=== PATIENT | male | born 1955 | race Caucasian/White ===

== ENCOUNTER 2018-03-19 08:24 | Emergency (ER) | payer MEDICAID, SELFPAY ==
[2018-03-19 08:25] VITALS: BP 138/97; PULSE 79; RESP 17; TEMP 37; O2SAT 97; BMI 21.2
--- NOTE | 2018-03-19 08:42 | RAD_ITS ---
STUDY: X-RAY - PELVIS AND RIGHT HIP REASON FOR EXAM: Male, 63 years old. Pain due to trauma. Limited range of motion. TECHNIQUE: Radiological exam, hip, unilateral, with pelvis when performed; 2 or 3 views. COMPARISON: None. FINDINGS: There is a non-specific bowel gas pattern. Normal visualized soft tissue structures. Normal bilateral iliac wings, sacroiliac joints and visualized sacrum. Normal bilateral superior and inferior pubic rami. Normal pubic symphysis. Normal bilateral ischial tuberosities. Normal visualized femoral head. Normal acetabulum. Normal hip joint. The patient is status post intramedullary alondra fixation of the left femur. RAD/Hip 2-3 Views with Pelvis IMPRESSION: No acute abnormality is seen of the right hip. Electronically Signed: William Ruby MD at 9:26 EDT Tel [phone], Service support ,
[2018-03-19] MEDS: HYDROcodone Bitartrate/Apap 5/325 Tablet PO (08:46)
--- NOTE | 2018-03-19 08:50 | ED.VISSUMM ---
- ER Visit Summary Date of Service: 03/19/18 Chief Complaint: Right hip and groin pain History of Present Illness: The patient is a 63 M with no primary care physician. He reports that 3 days ago he was [place] by the [place] and slipped in mud. Twisted awkwardly and did not fall. He reports he has pain in his right groin and hip that is 10 out of 10 with movement and is pain-free at rest. Describes his pain as sharp. Patient reports that he has chronic back pain. This is worsened over the past 3 days as well because he has had to change his gait due to his right hip pain. Reports he has a burning pain is 10 out of 10 with movement and 7 out of 10 at rest. No radiation to his legs that is new. No new numbness or weakness. No problems with his bowels or his bladder. No groin numbness. Physical Examination: Vitals: Stable. Afebrile. Neck: No vertebral tenderness. Full ROM without difficulty. Cleared by NEXUS criteria. Back: Minimal tenderness palpation of the lumbar spine and paraspinous muscular and lumbar region. General: A&O x 3. NAD. Cardiovascular exam: Regular rate and rhythm, no murmur, rub or gallop. Respiratory exam: Chest nontender. No crepitus. Clear to auscultation bilaterally. No wheezes or stridor. Abdominal exam: Soft, nontender, nondistended, normal bowel sounds. No pain in RUQ or LUQ specifically. No peritoneal signs. Extremity: Moderate tenderness palpation over the right greater trochanter and inguinal region. He has no pain with internal/external rotation of his hip. Test Results: Right hip and pelvis x-ray show no acute disease. Emergency Department Course and Treatment: An OARRS report was obtained which was negative. The patient was treated with [place]. He is resting comfortably. Treatment Plan: Patient will be discharged prescription for [place]. [facility] if not improving. Return to the emergency department for any worsening symptoms. Disposition: To home in improved and stable condition. Impression: 1. Right hip sprain. This note was generated with Cloud[employer]ine[employer] software. It may contain incorrect words, spelling, and punctuation that were not noted in review of the chart prior to signing ED Disposition - Plan for ED Patient: Chief Complaint: Back Instructions: ED Sprain Hip Prescriptions: Hydrocodone/Acetaminophen [[place] 5-325 Tablet] 1 - 2 each PO 4X/DAY PRN PRN 5 Days #20 tablet PRN Reason: Pain Referrals: Gayle Perez [NON-STAFF] - 1 Week if not improving
--- NOTE | 2018-03-19 08:53 | ED.DCSUM_ITS ---
- ER Visit Summary Date of Service: 03/19/18 Chief Complaint: Right hip and groin pain History of Present Illness: The patient is a 63 M with no primary care physician. He reports that 3 days ago he was [place] and slipped in mud. Twisted awkwardly and did not fall. He reports he has pain in his right groin and hip that is 10 out of 10 with movement and is pain-free at rest. Describes his pain as sharp. Patient reports that he has chronic back pain. This is worsened over the past 3 days as well because he has had to change his gait due to his right hip pain. Reports he has a burning pain is 10 out of 10 with movement and 7 out of 10 at rest. No radiation to his legs that is new. No new numbness or weakness. No problems with his bowels or his bladder. No groin numbness. Physical Examination: Vitals: Stable. Afebrile. Neck: No vertebral tenderness. Full ROM without difficulty. Cleared by NEXUS criteria. Back: Minimal tenderness palpation of the lumbar spine and paraspinous muscular and lumbar region. General: A&O x 3. NAD. Cardiovascular exam: Regular rate and rhythm, no murmur, rub or gallop. Respiratory exam: Chest nontender. No crepitus. Clear to auscultation bilaterally. No wheezes or stridor. Abdominal exam: Soft, nontender, nondistended, normal bowel sounds. No pain in RUQ or LUQ specifically. No peritoneal signs. Extremity: Moderate tenderness palpation over the right greater trochanter and inguinal region. He has no pain with internal/external rotation of his hip. Test Results: Right hip and pelvis x-ray show no acute disease. Emergency Department Course and Treatment: An OARRS report was obtained which was negative. The patient was treated with [place]. He is resting comfortably. Treatment Plan: Patient will be discharged prescription for [place]. [facility] not [facility]. Return to the emergency department for any worsening symptoms. Disposition: To home in improved and stable condition. Impression: 1. Right hip sprain. This note was generated with i[employer] software. It may contain incorrect words, spelling, and punctuation that were not noted in review of the chart prior to signing ED Disposition - Plan for ED Patient: Chief Complaint: Back Instructions: ED Sprain Hip Prescriptions: Hydrocodone/Acetaminophen [[place] 5-325 Tablet] 1 - 2 each PO 4X/DAY PRN PRN 5 Days #20 tablet PRN Reason: Pain Referrals: [facility] [NON-STAFF] - 1 Week if not improving
[2018-03-19 09:51] VITALS: BP 132/77; PULSE 84; RESP 20
== END 2018-03-19 09:51 | disposition home or self-care (01) ==
LOC: ED 08:47
PROVIDERS: Emergency Provider Emergency Medicine
DX: S73.101A Unspecified sprain of right hip, initial encounter (principal); W01.0XXA Fall on same level from slipping, tripping and stumbling without subsequent striking against object, initial encounter; Y93.89 Activity, other specified; Y92.828 Other wilderness area as the place of occurrence of the external cause; Y99.8 Other external cause status; G89.29 Other chronic pain; M54.9 Dorsalgia, unspecified; R11.2 Nausea with vomiting, unspecified; Z86.19 Personal history of other infectious and parasitic diseases
CPT/HCPCS: 73502; 99283

== ENCOUNTER 2021-06-18 11:48 | Emergency (ER) | payer MEDICAID, SELFPAY ==
[2021-06-18 11:48] VITALS: BP 158/76; PULSE 72; RESP 24; TEMP 36.7; O2SAT 100; BMI 21.1
--- NOTE | 2021-06-18 13:16 | CT_ITS ---
EXAM: CT HEAD WITHOUT INTRAVENOUS CONTRAST CLINICAL INDICATION: Injury/Pain TECHNIQUE: Multiple axial images were obtained of the head without intravenous contrast. This CT exam was performed using one or more of the following dose reduction techniques: automated exposure control, adjustment of the mA and/or kV according to patient size, and/or use of iterative reconstruction technique. This report was created using [employer] report generation technology. COMPARISON: None. FINDINGS: BRAIN AND EXTRA-AXIAL SPACES: Unremarkable. No intra- or extra-axial hemorrhage. No evidence of acute infarct. No intracranial mass or mass effect. There is preservation of the leon/white matter interface. Posterior fossa structures are unremarkable. Ventricles are appropriate for age. No hydrocephalus. Basal cisterns are patent. BONES/JOINTS: Unremarkable. No discrete lytic or blastic abnormalities. SINUSES: Unremarkable as visualized. Clear. MASTOID AIR CELLS: Unremarkable. Clear. ORBITS: Visualized globes, extraocular muscles, optic nerves and retrobulbar fat appear unremarkable. CT/Brain/Head without Contrast IMPRESSION: Negative head/brain CT without intravenous contrast. Electronically Signed: Doug Velázquez MD at 14:05 EDT , Service support ,
--- NOTE | 2021-06-18 13:16 | CT_ITS ---
EXAM: CT CERVICAL SPINE WITHOUT INTRAVENOUS CONTRAST CLINICAL INDICATION: Injury/Pain TECHNIQUE: Helically acquired images were obtained of the cervical spine without intravenous contrast. 2D reformatted images were reviewed. This CT exam was performed using one or more of the following dose reduction techniques: automated exposure control, adjustment of the mA and/or kV according to patient size, and/or use of iterative reconstruction technique. This report was created using [employer] report WHOOP technology. COMPARISON: None. FINDINGS: VERTEBRAE: See below. DISCS/SPINAL CANAL/NEURAL FORAMINA: Prominent anterior and posterior marginal spurs with disc space height narrowing and endplate sclerosis at C3-C4 disc space level. Moderate degenerative disc space height narrowing at C3-C4 down to C6-C7 disc space levels. Moderate stenosis of the left C3-C4 intervertebral neural foramen. Moderate stenosis of the bilateral C4-C5 intervertebral neural foramina. Moderately pronounced stenosis of the bilateral C5-C6 intervertebral neural foramina. SOFT TISSUES: Unremarkable. No prevertebral soft tissue swelling. LYMPH NODES: Unremarkable. No cervical adenopathy. LUNG APICES: Unremarkable as visualized. Clear. CT/Spine Cervical without Contras IMPRESSION: No CT evidence of acute fracture or malalignment of the cervical spine and the craniocervical junction. Electronically Signed: Doug Velázquez MD at 14:38 EDT , Service support ,
[2021-06-18] MEDS: HYDROmorphone 0.5 MG/0.5 ML SYRINGE IM (13:24)
--- NOTE | 2021-06-18 13:52 | RAD_ITS ---
HISTORY: Trauma, fall, pain left lower mid breast anteriorly EXAMINATION/TECHNIQUE: XR Ribs Unilateral W/ PA Chest Min 3 Views: COMPARISON: 05/29/1713 left ribs series FINDINGS: LINES/DEVICES: None. LUNGS: No consolidation, edema or effusion. No pneumothorax. MEDIASTINUM AND CARDIOVASCULAR STRUCTURES: Cardiac silhouette not enlarged. Central airways and mediastinal contour are unremarkable. RIBS AND OSSEOUS STRUCTURES: No evidence of an acute displaced rib fracture. RAD/Ribs Uni Min 3V w/PA Chest IMPRESSION: No acute radiographic abnormality. at 1636 Reported and signed by: Everett Alonso MD Electronically Signed: Everett Alonso MD at 16:34 EDT Tel , Service support ,
--- NOTE | 2021-06-18 13:52 | RAD_ITS ---
HISTORY: Trauma, injury, pain EXAMINATION/TECHNIQUE: XR Wrist Min 3 Views: COMPARISON: None FINDINGS: BONES/JOINTS: Mildly displaced, angulated and comminuted intra-articular fracture of the distal radius. Preservation of the joint spaces. No sclerotic or destructive changes observed. SOFT TISSUES: Mild wrist swelling. No radiopaque foreign body. RAD/Wrist min 3 Views IMPRESSION: Comminuted intra-articular fracture of the distal radius. at 1632 Reported and signed by: Everett Alonso MD Electronically Signed: Everett Alonso MD at 16:31 EDT Tel , Service support ,
--- NOTE | 2021-06-18 14:46 | EDS_ITS ---
HPI HPI - Fall History of Present Illness Chief Complaint: Fall Informant: patient Occured/Mechanism Occurred: Yesterday Fall down steps #: Approximately 15 Pain/Injury Location: Left wrist, left lower ribs Quality of Pain: Sharp and Aching Worsened by: Movement Relieved by: Rest Associated Symptoms Associated Symptoms: Positive for Loss of consciousness; Negative for Parasthesias, Weakness and Inability to ambulate Length of loss of consciousness: Unknown Narrative Narrative: Patient presents after a fall that occurred last night. Patient states he fell down approximately 15 steps. Patient thinks he hit his head. Patient thinks he lost consciousness for few minutes. Patient does not remember much about last night. Patient denies any numbness or tingling. Patient states that most of his pain is in his left wrist. Patient denies any paresthesias or weakness. Patient also complains of pain in his left shoulder and neck. Patient states his pain is worse with any movement. Patient denies any visual changes. Patient denies any nausea or vomiting. [facility] Medical History Depression Diabetes Diverticulitis HTN (hypertension) Home Medications hydrocodone-acetaminophen 1 tab PO Q6H PRN PRN 3 Days #10 tablet 06/18/21 [Rx Last Taken Unknown] Allergy/AdvReac Type Severity Reaction Status Date / Time No Known Allergies Allergy Verified 06/18/21 11:48 Social History Smoking Status: Former smoker ROS ROS ED Constitutional Constitutional ED: Denies chills or fever(s) Eyes Eyes: Denies blurry vision or change in vision ENT ENT ED: Denies rhinorrhea or sore throat Cardiovascular Cardiovascular: Denies chest pain or palpitations Respiratory/Chest Respiratory/Chest: Denies cough or dyspnea Gastrointestinal Gastrointestinal: Denies nausea or vomiting Genitourinary Genitourinary ED: Denies dysuria or hematuria Musculoskeletal Musculoskeletal: Reports neck pain; Denies back pain Integumentary Denies abscess or rash Neurologic Neurologic: Denies headache(s) or weakness Allergic/Immunologic Allergic/Immunologic ED: Denies mouth swelling or urticaria EXAM Physical Exam Const Vital Signs: 06/18/21 11:48 06/18/21 13:29 Temperature 98.0 F Temperature Source Temporal Pulse Rate 72 Respiratory Rate 24 H Respiratory Effort Normal Non-Labored Respiratory Depth Normal Respiratory Pattern Normal Blood Pressure 158/76 H Blood Pressure Mean 103 Pulse Ox 100 Oxygen Delivery Method Room Air Positive well nourished and well developed General Appearance ED: well developed HEENT Reports normocephalic atraumatic Eyes PERRL and EOMs intact bilaterally Neck full ROM and supple Extremity Extremity Narrative: There is tenderness, edema, and ecchymosis over the left wrist area. There is no puncture wound noted. Range of motion was limited in all motions of the left wrist secondary to pain. Sensation was intact to light touch in the radial, median, ulnar, and axillary areas. Strength is 5/5 in the radial, median, and ulnar areas. Radial pulses are equal bilaterally. Neuro oriented x3, CN's II-XII intact bilaterally, moves all extremities, no focal motor deficits and no sensory deficits noted Sensorium / Orientation: alert MDM MDM MDM Narrative Medical decision making narrative: Patient was given a dose of Dilaudid here. X-rays of the left wrist were obtained. There are 3 views. On my interpretation, there is a fracture of the distal radius. There is minimal displacement and slight dorsal angulation. There is some soft tissue swelling noted. Radiologist also interpreted the x-rays and agrees. X-rays of the left ribs were obtained. There are 6 views. On my interpretation, there is no acute fracture. There is no pneumothorax. There are no other fractures noted. There is no acute cardiopulmonary process noted. Radiologist also interpreted the x- rays and agrees. CT scan of the brain was obtained. There is no acute intracranial abnormalities noted. This was interpreted by the radiologist and reviewed by myself. CT scan of the cervical spine was obtained. There is no acute fracture or spondylolisthesis. This was also interpreted by the radiologist and reviewed by myself. Patient was advised of his findings. Patient was placed in a well-padded custom made short arm AP splint using 3 x 12 Ortho-Glass. This was custom made by myself. Neurovascular exam was intact before and after placement of the splint. Patient was given a prescription for [place]. Patient was instructed to ice and elevate the left wrist. Patient was instructed to follow-up with his primary care physician in 5 to 7 days. Patient understood and was agreeable with the plan. All questions were answered. Radiography Diagnostic Testing: Clinical Impression(s) from Imaging Studies Brain CT 06/18/21 13:16 IMPRESSION: Negative head/brain CT without intravenous contrast. Electronically Signed: Doug Velázquez MD at 14:05 EDT , Service support , Cervical Spine CT 06/18/21 13:16 IMPRESSION: No CT evidence of acute fracture or malalignment of the cervical spine and the craniocervical junction. Electronically Signed: Doug Velázquez MD at 14:38 EDT , Service support , Discharge Plan Triage Chief Complaint: Fall ED Provider: Vic Mohan Dx/Rx/DC Orders Clinical Impression: Closed fracture of left distal radius, Closed head injury Instructions: ED Fracture, Upper Extremity, ED Head Injury (Adult) Prescriptions: New hydrocodone-acetaminophen [hydrocodone-acetaminophen] 1 TABLET tablet 1 tab PO Q6H PRN PRN (Reason: Pain) 3 Days Qty: 10 RF: 0 Discontinued hydrocodone-acetaminophen [[place]] 1 EACH tablet 1 - 2 ea PO 4X/DAY PRN PRN (Reason: Pain) 5 Days Qty: 20 RF: 0 Primary Care Provider: Sammi Dumont Referrals: Carlos Arndt DO [STAFF PHYSICIAN] - 3-5 Days Sammi Dumont MD [Primary Care Provider] - 5-7 Days Disposition Disposition: Home, Self Care
[2021-06-18 16:13] VITALS: BP 131/89; PULSE 57
== END 2021-06-18 16:14 | disposition home or self-care (01) ==
PROVIDERS: Emergency Provider Emergency Medicine; PCP Student in an Organized Health Care Education/Training Program
DX: S52.502A Unspecified fracture of the lower end of left radius, initial encounter for closed fracture (principal); S09.90XA Unspecified injury of head, initial encounter; W10.9XXA Fall (on) (from) unspecified stairs and steps, initial encounter; E11.9 Type 2 diabetes mellitus without complications; F32.A Depression, unspecified; I10 Essential (primary) hypertension; Z87.891 Personal history of nicotine dependence
CPT/HCPCS: 29125; 70450; 71101; 72125; 73110; 96372; 99283